=== PATIENT | female | born 1980 | race Caucasian/White ===

== ENCOUNTER 2024-09-03 01:11 | Emergency (ER) | payer OTHER ==
[~2024-09-03] VITALS: Ht 170.2 cm; Wt 68.2 kg
[2024-09-03 01:28] VITALS: BP 133/80; TEMP 98
[2024-09-03 02:18] VITALS: PULSE 97; RESP 16; O2SAT 98
== END 2024-09-03 02:20 | disposition home or self-care (01) ==
LOC: ER 01:12
DX: S01.01XA Laceration without foreign body of scalp, initial encounter (principal); W19.XXXA Unspecified fall, initial encounter; Y93.89 Activity, other specified; Y92.89 Other specified places as the place of occurrence of the external cause; Y99.8 Other external cause status
CPT/HCPCS: 99283